=== PATIENT | female | born 1975 | race Caucasian/White ===

== ENCOUNTER 2017-10-31 10:45 | Emergency (ER) | payer OTHER ==
[2017-10-31 10:47] VITALS: BP 168/96; PULSE 75; RESP 20; TEMP 98; O2SAT 99
[2017-10-31] MEDS ORDERED: VENL25TA PO (10:52)
[2017-10-31] MEDS ORDERED: SLEEPING PILL (10:52)
[2017-10-31] MEDS ORDERED: LISI2.5T3 PO (10:52)
--- NOTE | 2017-10-31 12:05 | RADRPT ---
EXAM DATE: 10/31/2017 11:43 AM EDT AGE/SEX: 42 years / Female INDICATIONS: Right foot pain post fall CLINICAL DATA: This is the patient's initial encounter. Patient reports that signs and symptoms have been present for 1 day and indicates a pain score of 10/10. MEDICAL/SURGICAL HISTORY: None. None. COMPARISON: No prior [facility] exams available for comparison. FINDINGS: Bony structures are intact and in normal alignment. Osseous density is normal. There appear to be acc essory ossicles adjacent to the talar head as well as the cuboid. Calcaneal spurs at the plantar apon eurosis and Achilles attachment. Soft tissues are unremarkable. No radiopaque foreign bodies seen. CONCLUSION: 1. Chronic changes with some calcaneal spurs at the plantar aponeurosis and Achilles attachment. 2. Accessory ossifications as above. 3. No acute fracture. Electronically signed by: Kishor Kimball MD 10/31/2017 12:03 PM EDT
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
--- NOTE | 2017-10-31 12:38 | RADRPT ---
EXAM DATE: 10/31/2017 11:43 AM EDT AGE/SEX: 42 years / Female INDICATIONS: Right ankle pain post fall. CLINICAL DATA: This is the patient's initial encounter. Patient reports that signs and symptoms have been present for 1 day and indicates a pain score of 10/10. MEDICAL/SURGICAL HISTORY: None. None. COMPARISON: No prior exams available for comparison. FINDINGS: No fracture is seen. The ankle is normally aligned. There is prominent soft tissue swelling at the an kle being worse laterally. There are prominent calcaneal spurs at the Achilles and plantar aponeurosi s attachment sites. CONCLUSION: No acute bony injury is seen. Soft tissue swelling. Calcaneal spurs. Electronically signed by: Fantasma Garcia MD 10/31/2017 12:37 PM EDT
[2017-10-31] MEDS ORDERED: IBUP1TAB7 PO (12:45)
[2017-10-31] MEDS ORDERED: IBUPROFEN 800 MG TAB PO ONE (12:45)
== END 2017-10-31 12:57 | disposition home or self-care (01) ==
LOC: PHEFT 10:45
DX: S93.401A Sprain of unspecified ligament of right ankle, initial encounter (principal); X50.1XXA Overexertion from prolonged static or awkward postures, initial encounter; Y92.832 Beach as the place of occurrence of the external cause; I10 Essential (primary) hypertension; Z88.5 Allergy status to narcotic agent; Z79.899 Other long term (current) drug therapy
CPT/HCPCS: 73610; 73630; 99283; L1906